=== PATIENT | male | born 1960 | race Caucasian/White ===

== ENCOUNTER → 2023-10-18 07:22 | Outpatient (REF) | payer BC, SELFPAY ==
[2023-10-18] MEDS: FLUSH (NSS) 1 FLUSH IV (09:21)
[2023-10-18] MEDS: LEXISCAN 0.400000000000000022 MG IV (09:21)
== END ==
LOC: RCS 07:22
PROVIDERS: ATTENDING PHYSICIAN Nurse Practitioner Gerontology; FAMILY PHYSICIAN Family Medicine
DX: R07.89 Other chest pain (principal); R06.09 Other forms of dyspnea; I25.10 Atherosclerotic heart disease of native coronary artery without angina pectoris
CPT/HCPCS: 78452; 93017; A9500; J2785

== ENCOUNTER → 2023-10-20 11:23 | Outpatient (REF) | payer BC, SELFPAY ==
--- NOTE | 2023-10-20 12:10 | CARDSERVLU ---
Echocardiogram with Lumason completed after protocol screening completed. Allergies verified.
Patent IV site: _Rt hand____
IV site flushed with 0.9% NaCl pre and post administration.
Diluted bolus method utilized to enhance visualization of ventricular gomez.
Total volume given: 3.0____ mL
Patient tolerated all procedures well without complications.
#22 senait placed rt hand. Lumason given. INT d/c'd. dsg applied and pressure held. no bleeding noted.
== END ==
LOC: RCS 11:23
PROVIDERS: ATTENDING PHYSICIAN Internal Medicine Cardiovascular Disease; FAMILY PHYSICIAN Family Medicine
DX: R07.89 Other chest pain (principal); R06.09 Other forms of dyspnea; I25.10 Atherosclerotic heart disease of native coronary artery without angina pectoris
CPT/HCPCS: 93306; Q9950

== ENCOUNTER → 2024-09-14 07:20 | Outpatient (REF) | payer BC, SELFPAY | LOC: HWRCS 07:20 | PROVIDERS: ATTENDING PHYSICIAN Internal Medicine Cardiovascular Disease; FAMILY PHYSICIAN Family Medicine | DX: I25.10 Atherosclerotic heart disease of native coronary artery without angina pectoris (principal); Z95.2 Presence of prosthetic heart valve; R06.09 Other forms of dyspnea | CPT/HCPCS: 93306 ==

== ENCOUNTER → 2024-10-05 07:07 | Outpatient (REF) | payer BC, SELFPAY | LOC: HWRCS 07:07 | PROVIDERS: ATTENDING PHYSICIAN Internal Medicine Cardiovascular Disease; FAMILY PHYSICIAN Family Medicine | DX: I25.10 Atherosclerotic heart disease of native coronary artery without angina pectoris (principal); R06.09 Other forms of dyspnea | CPT/HCPCS: 78452; 93017; A9500; J2785 ==

== ENCOUNTER 2024-11-16 06:33 | Day surgery (SDC) | payer BC, SELFPAY ==
[2024-11-09 08:08] VITALS: BMI 35.5
[2024-11-09 08:40] LABS: % Basophils 1.3 % (0-2); % Eosinophils 7.1 % (0-6); % Immature Granulocytes 0.3 % (0-0.5); % Lymphocytes 15.6 % (20.5-51.1); % Neutrophils 63.7 % (42.2-75.2); Absolute Basophils 0.1 10^3/uL (0-0.2); Absolute Eosinophils 0.5 10^3/uL (0-0.7); Absolute Lymphocytes 1.1 10^3/uL (1.2-3.4); Absolute Monocytes 0.9 10^3/uL (0.1-0.6); Absolute Neutrophils 4.6 10^3/uL (1.4-6.5); Hematocrit 44.2 % (39.0-52.0); Mean Corp Hgb Conc. 31.7 g/dL (33.0-37.0); Mean Corpuscular Hgb 24.1 pg (27.0-31.0); Mean Corpuscular Volume 76.1 fL (80.0-94.0); Mean Platelet Volume 9.8 fL (7.4-10.4); Nucleated Red Blood Cells % 0 % (-); Platelet Count 220 10^3/uL (130-400); Red Blood Cell Count 5.81 10^6/uL (4.70-6.10); Red Cell Dist. Width 17.2 % (11.5-14.5); White Blood Cell Count 7.2 10^3/uL (4.8-10.8)
[2024-11-09 10:33] LABS: ALT (SGPT) 26 U/L (0-50); AST (SGOT) 30 U/L (17-59); Albumin 4.8 g/dl (3.5-5.0); Alkaline Phosphatase 61 U/L (38-126); Blood Urea Nitrogen 30 mg/dl (9-20); Calcium 9.8 mg/dl (8.4-10.2); Carbon Dioxide 24 mmol/L (22-30); Chloride 106 mmol/L (98-107); Estimated Creatinine Clearance 89 ml/min; Glucose 58 mg/dl (70-99); Potassium 4.2 mmol/L (3.5-5.1); Sodium 141 mmol/L (135-145); Total Bilirubin 0.9 mg/dl (0.2-1.3); Total Protein 7.5 g/dl (6.3-8.2); eGFR > 60.00
[2024-11-16] VITALS (11 sets, daily range): BP systolic 128–157; BP diastolic 70–87; BMI 34.6
[2024-11-16 07:16] LABS: Glucose - Point of Care 273 mg/dl (70-99)
[2024-11-16] MEDS: NSS 347 ML IV (07:18)
[2024-11-16 09:40] LABS: Glucose - Point of Care 277 mg/dl (70-99)
--- NOTE | 2024-11-16 09:40 | ITS.CL.CATH ---
[facility] - Catheterization
Cardiac Catheterization
Procedure Report:
CARDIAC CATHETERIZATION REPORT
Date of Procedure: 11/16/2024
Referring: Justin Umanzor M.D.
INDICATION: Nonspecific chest discomfort, dyspnea on exertion, abnormal chest pressure, known coronary artery disease status post CABG x 1, PCI, history of aortic root replacement and bioprosthetic AVR.
PROCEDURE:
1. Left heart catheterization
2. Coronary angiography
3. Bypass angiography.
A total of 30 minutes of procedural/moderate sedation was utilized. An independent medical imaging technologist was present to assist with and help manage the patient's level of consciousness and physiologic status.
ACCESS:
1. 6 [place] right common artery using a modified Seldinger technique with a micropuncture kit under ultrasound guidance.
CATHETERS:
1. 5 [place] JL 4.
2. 5 [place] JR4.
3. 5 [place] NGUYỄN.
HEMODYNAMIC DATA
Weight (kg): 115.7
AO (s/d/x, mmHg): 164/85/117
LV (s/x mmHg): 166/28 (A wave to 39)
LEFT VENTRICULOGRAPHY: Not performed. Bioprosthetic AVR is observed.
CORONARY ANGIOGRAPHY
Dominance: Left.
Left Main: Normal size, trifurcating vessel. There is no coronary artery disease.
LAD: Normal size vessel giving rise to 1 significant diagonal. There is a 70% lesion in the proximal LAD spanning the origin of D1. There is a 90% lesion in the mid LAD. There is a 50-60% lesion in the apical portion of the LAD. The
mid/distal LAD is supplied by patent LATHAM graft.
Ramus: Small size vessel with no significant coronary artery disease.
Circumflex: Large size, dominant vessel giving rise to 1 obtuse marginal before terminating as a left posterior descending artery. A patent stent is observed in the proximal circumflex with no evidence of ISR.
RCA: Small size, nondominant vessel.
BYPASS GRAFT ANGIOGRAPHY
LATHAM to LAD: Normal size graft with end-to-side anastomosis to the distal mid LAD. There is no evidence of stenosis or graft degeneration.
INTERVENTION(S)
1. Intracoronary nitroglycerin 100 mcg through the LATHAM graft.
Narrative:
Angiography of the LATHAM graft to the LAD demonstrated potential spasm of the distal LAD. Nitroglycerin 100 mcg was given through the LATHAM graft and into the distal LAD. This demonstrated a modest improvement in the LAD diameter and did reveal a
50-60% stenosis in the apical LAD that was too distal for intervention.
Closure Device: 6 [place] Angio-Seal.
Radiation (mGy): 724.52
DAP (cm2.Gy): 55.4152
Fluoroscopy time (minutes): 5.7
CONCLUSIONS
1. Left dominant circulation with a 70% lesion in the proximal LAD spanning the origin of D1, a 90% lesion in the mid LAD, a 50-60% lesion in the apical LAD with a patent stent in the proximal circumflex, status post single-vessel bypass (patent
LATHAM to LAD) with mild distal LAD spasm relieved by intracoronary nitroglycerin.
2. Severely elevated filling pressures (LVEDP = 28 mmHg at 115.7 kg) with diastolic dysfunction (A wave to 39 mmHg).
RECOMMENDATIONS:
1. Expectant management after cardiac catheterization via right common femoral approach.
2. Limited weight bearing for one week.
3. Furosemide 40 mg IV was given here in the [facility]. We will start 40 mg p.o. daily BMP in 1 week.
4. GDMT as hemodynamics will tolerate. The patient is on an ERICK inhibitor, beta-jean carlos and SGLT2 inhibitor. There may be a role for mineralocorticoid receptor antagonist.
5. Continue aggressive secondary prevention with high-dose, high potency statin. Goal LDL <55.
6. Stable for outpatient follow-up.
Copy to: Justin Umanzor M.D., Alexey Ford M.D.
Aleksander Ward, DO, FACC, FACP
[2024-11-16] MEDS: ZESTRIL 20 MG PO (10:38)
[2024-11-16] MEDS: NORVASC 10 MG PO (10:38)
[2024-11-16] MEDS: LANTUS 0.5 UNITS SC (10:39)
[2024-11-16] MEDS: LASIX 40 MG IV (11:39)
== END 2024-11-16 12:45 | disposition home or self-care (01) ==
LOC: CATH 06:33
PROVIDERS: ATTENDING PHYSICIAN Internal Medicine Cardiovascular Disease; FAMILY PHYSICIAN Family Medicine; OTHER PHYSICIAN Internal Medicine Cardiovascular Disease
DX: I25.10 Atherosclerotic heart disease of native coronary artery without angina pectoris (principal); Z95.5 Presence of coronary angioplasty implant and graft; Z95.1 Presence of aortocoronary bypass graft; I10 Essential (primary) hypertension; E78.5 Hyperlipidemia, unspecified; E11.8 Type 2 diabetes mellitus with unspecified complications; E66.9 Obesity, unspecified; Z68.35 Body mass index [BMI] 35.0-35.9, adult; F32.A Depression, unspecified; F41.9 Anxiety disorder, unspecified; G47.00 Insomnia, unspecified; E03.9 Hypothyroidism, unspecified; M10.9 Gout, unspecified; K21.9 Gastro-esophageal reflux disease without esophagitis; Z95.3 Presence of xenogenic heart valve; Z83.3 Family history of diabetes mellitus; Z82.49 Family history of ischemic heart disease and other diseases of the circulatory system; Z79.82 Long term (current) use of aspirin; Z79.84 Long term (current) use of oral hypoglycemic drugs; Z79.85 Long-term (current) use of injectable non-insulin antidiabetic drugs; Z79.4 Long term (current) use of insulin
CPT/HCPCS: 99152; 99153; C1769; C1894; 36415; 80053; 82962; 85025; 93005; 93459; C1760; Q9967